=== PATIENT | female | born 1995 | race Caucasian/White ===

== ENCOUNTER 2024-10-21 11:37 | Inpatient (IN) | payer OTHER ==
[~2024-10-21] VITALS: Ht 154.9 cm; Wt 68.2 kg
[2024-10-21] MEDS ORDERED: HOME MED LIST COMPLETE! XX SCH (12:30)
[2024-10-21] MEDS ORDERED: diphenhydrAMINE 25MG CAP PO PRN (13:55)
[2024-10-21] MEDS ORDERED: ACETAMINOPHEN 325 MG TAB PO PRN (13:55)
[2024-10-21] MEDS ORDERED: MAALOX 30 ML SUSP *UDC PO PRN (13:55)
[2024-10-21] MEDS ORDERED: traZODone 50 MG TAB PO PRN (13:55)
[2024-10-21] MEDS ORDERED: LORazepam 2 MG TAB PO PRN (13:55)
[2024-10-21] MEDS ORDERED: MOM 30ML SUSPENSION UDC PO PRN (13:55)
[2024-10-21] MEDS ORDERED: IBUPROFEN 400MG TAB PO PRN (13:55)
[2024-10-21 14:53] VITALS: BP 136/82; TEMP 98.4; O2SAT 100
[2024-10-21 15:50] VITALS: BP 136/82
[2024-10-21] MEDS: FOLIC ACID 1MG TAB PO SCH (16:47)
[2024-10-21] MEDS: MULTIVITAMINS/MINERALS THERAP 1 TAB PO SCH (16:47)
[2024-10-21] MEDS: THIAMINE 100 MG TAB PO SCH (16:47)
[2024-10-21 21:56] VITALS: BP 132/84
[2024-10-22 06:27] VITALS: BP 100/60; TEMP 96.8; O2SAT 100
[2024-10-22 06:32] VITALS: BP 100/60
[2024-10-22 14:01] VITALS: BP 133/72
[2024-10-22 14:02] VITALS: BP 133/72; TEMP 97; O2SAT 100
[2024-10-22 21:06] VITALS: BP 131/88
[2024-10-23 06:24] VITALS: BP 102/57; TEMP 96.9; O2SAT 99
[2024-10-23 08:13] VITALS: BP 107/57
[2024-10-23] MEDS: busPIRone 5 MG TAB PO SCH (08:43)
[2024-10-23 14:26] VITALS: BP 134/86; TEMP 97.7; O2SAT 100
[2024-10-24 06:14] VITALS: BP 134/60; TEMP 97; O2SAT 100
[2024-10-24 14:48] VITALS: BP 131/69; TEMP 98.4; O2SAT 98
[2024-10-25 06:21] VITALS: BP 106/52; TEMP 98.6; O2SAT 100
[2024-10-25] MEDS ORDERED: BUSP5TA PO (12:04)
== END 2024-10-25 14:31 | disposition home or self-care (01) | DRG 880 ==
LOC: M ED 11:37 → M ED INP 13:51 → M PSY 14:49
PROVIDERS: ADMIT Psychiatry & Neurology Psychiatry; ATTEND Psychiatry & Neurology Psychiatry
DX: F41.9 Anxiety disorder, unspecified (principal); F32.A Depression, unspecified; F17.290 Nicotine dependence, other tobacco product, uncomplicated; Z88.2 Allergy status to sulfonamides; Z63.0 Problems in relationship with spouse or partner; Z91.51 Personal history of suicidal behavior